=== PATIENT | male | born 1940 | race Caucasian/White ===

== ENCOUNTER 2019-08-09 07:03 | Day surgery (SDC) | payer MEDICARE, BC ==
[~2019-08-09] VITALS: Ht 180.3 cm; Wt 89.5 kg
[2019-08-09 07:45] LABS: APTT 33.8 SECONDS (22.8-39.4)
[2019-08-09 07:46] LABS: INR 1.18 (0.85-1.17)
[2019-08-09 08:45] LABS: HEMATOCRIT 28.8 % (42.0-54.0); HEMOGLOBIN 9.5 g/dL (13.5-17.5); MCH 22.6 pg (26.0-34.0); MCV 68.4 fL (80.0-100.0); MEAN PLATELET VOLUME 10.7 fL (7.4-10.4); PLATELET COUNT 96 10x3/uL (130-400); RBC 4.21 10x6/uL (4.20-6.10); RDW 16.3 % (11.5-14.5); WBC 5.4 10x3/uL (4.8-10.8)
[2019-08-09 09:20] VITALS: BP 117/52; Ht 180.3 cm; Wt 89.5 kg
[2019-08-09] MEDS ORDERED: FOLIC ACID0.8 MG PO (09:25)
[2019-08-09] MEDS ORDERED: TOPROL XL25 MG PO (09:26)
[2019-08-09] MEDS ORDERED: PLAVIX75 MG PO (09:27)
[2019-08-09] MEDS ORDERED: LASIX40 MG PO ×2 (09:27)
[2019-08-09] MEDS ORDERED: ALDACTONE100 MG PO (09:28)
[2019-08-09] MEDS ORDERED: ASPIRIN EC81 M1 PO (09:28)
[2019-08-09] MEDS ORDERED: PRAVACHOL40 MG PO (09:28)
[2019-08-09] MEDS ORDERED: CONSTULOSE (09:31)
[2019-08-09] MEDS ORDERED: LEVOXYL75 MCG PO (09:34)
[2019-08-09] MEDS ORDERED: LEVOXYL50 MCG PO (09:35)
[2019-08-09 10:23] LABS: PLATELET ESTIMATE DECREASED
--- NOTE | 2019-08-09 12:39 | NUR ---
1105 IV DC'D. CATHETER TIP INTACT. NO BLEEDING OR SWELLING AT SITE AFTER HOLDING PRESSURE. BANDAID APPLIED.
--- NOTE | 2019-08-10 16:37 | OP ---
PATIENT NAME: MARLENI HAYES MEDICAL RECORD: [id number] :40 LOCATION:D.OPS ADMISSION DATE: SURGEON: JONATHON MAR DO DATE OF OPERATION: 08/09/2019 PROCEDURE: Colonoscopy with polypectomy. INDICATIONS FOR PROCEDURE: History of colon polyps, diverticulosis, anemia, and thalassemia. SCOPE: Olympus video pediatric colonoscope. MEDICATIONS: Propofol 400 mg IV per anesthesia. WITHDRAWAL TIME: 12 minutes. ESTIMATED BLOOD LOSS: Minimal. COMPLICATIONS: None. FINDINGS: Informed consent was given. The patient was made comfortable with the above medication. After reaching an adequate level of sedation by slow IV push, the patient was placed in the left side. A digital rectal examination was performed and was normal. The endoscope was then advanced under direct visualization through the rectum to the cecum, confirmed by the presence of the appendiceal orifice and ileocecal valve. The endoscope was slowly withdrawn. Mucosa was carefully examined. Prep quality was good. There were multiple small mouth diverticula located in the descending and sigmoid colon consistent with mild diverticulosis. There was a single benign-appearing sessile polyp located in the rectum, which measured approximately 3 mm in diameter. It was removed using hot forceps. Retroflexion was performed in the rectum with a normal appearing rectal wall visualized. There were no other polyps visualized on today's examination. The endoscope was withdrawn from the patient. The patient tolerated the procedure well and there were no complications. IMPRESSION: 1. Single benign appearing polyp located in the rectum, status post hot forceps polypectomy. 2. Mild diverticulosis. PLAN AND RECOMMENDATIONS: 1. Discharge home when recovery parameters are met. 2. Follow up biopsy specimen results. 3. High fiber diet. 4. Continue current medications. 5. Recall colonoscopy. We will be dependent on results of polyps removed today. The polyp appeared to be consistent with a hyperplastic polyp. If that is the case, then considering the patient's age and health history overall, no further colonoscopies will likely be recommended. If this is an adenomatous polyp, we can consider a repeat in 5 years. TRANSINT:[id number] Voice Confirmation ID: [id number] DOCUMENT ID: [id number] OPERATIVE REPORT [id number] MARLENI HAYES JONATHON MAR DO at 6551 CC: [id number] DICTATION DATE: 08/09/19 1024 [employer] [employer] OPERATOR: 08/09/19 1722 [facility] [place] 08/09/19 [place] [id number] [place] [id number]
== END 2019-08-09 11:34 | disposition home or self-care (01) ==
LOC: D.OPS 07:03
PROVIDERS: Anesthesiology; ATTEND Internal Medicine Gastroenterology
DX: Z86.010 Personal history of colon polyps (principal); K57.90 Diverticulosis of intestine, part unspecified, without perforation or abscess without bleeding; D56.9 Thalassemia, unspecified; E07.9 Disorder of thyroid, unspecified; K74.60 Unspecified cirrhosis of liver; R18.8 Other ascites; D64.9 Anemia, unspecified

== ENCOUNTER 2019-10-11 11:19 | Day surgery (SDC) | payer MEDICARE ==
[~2019-10-11] VITALS: Ht 180.3 cm; Wt 93.2 kg
[~2019-10-11 11:19] MED LIST: ALDACTONE100 MG PO; ASPIRIN EC81 M1 PO; CONSTULOSE; FOLIC ACID0.8 MG PO; LASIX40 MG PO; LEVOXYL50 MCG PO; LEVOXYL75 MCG PO; PLAVIX75 MG PO; PRAVACHOL40 MG PO; TOPROL XL25 MG PO
[2019-10-11 11:50] LABS: APTT 32.1 SECONDS (22.8-39.4); INR 1.18 (0.85-1.17); PROTIME 14.9 SECONDS (11.6-15.0)
[2019-10-11 11:55] LABS: ALBUMIN 2.7 g/dL (3.4-5.0); ANION GAP 10.9 mmol/L (8-16); BILIRUBIN - TOTAL 1.39 mg/dL (0.2-1.3); CALCIUM 8.3 mg/dL (8.5-10.1); POTASSIUM - SERUM 4.9 mmol/L (3.5-5.1); PROTEIN - SERUM 6.5 g/dL (6.4-8.2)
[2019-10-11 12:11] VITALS: BP 128/57; Ht 180.3 cm; Wt 93.2 kg
[2019-10-11] MEDS ORDERED: FOLBIC RF TABL1 EACH PO (12:18)
--- NOTE | 2019-10-11 13:23 | NUR ---
DC INSTRUCTIONS GIVEN TO PT. STATES UNDERSTANDING. DC'D IV CATH FULLY INTACT.
--- NOTE | 2019-10-11 13:28 | NUR ---
PT LEFT UNIT VIA WC AT 1330
[2019-10-11 13:42] LABS: HEMATOCRIT 28.4 % (42.0-54.0); MCH 22.2 pg (26.0-34.0); MCHC 31.7 g/dL (31.0-37.0); MCV 70.1 fL (80.0-100.0); PLATELET COUNT 87 10x3/uL (130-400); RBC 4.05 10x6/uL (4.20-6.10); RDW 16.1 % (11.5-14.5); WBC 5.3 10x3/uL (4.8-10.8)
[2019-10-11 14:29] LABS: PLATELET ESTIMATE DECREASED
--- NOTE | 2019-10-12 09:55 | OP ---
PATIENT NAME: MARLENI HAYES MEDICAL RECORD: [id number] :40 LOCATION:[facility] ADMISSION DATE: SURGEON: JONATHON MAR DO DATE OF OPERATION: 10/11/2019 PROCEDURE: EGD with biopsies. INDICATIONS FOR PROCEDURE: Ascites, cirrhosis, anemia, elevated liver enzymes, thalassemia, and weight loss. SCOPE: Olympus video gastroscope. MEDICATIONS: Propofol 150 mg IV per anesthesia. ESTIMATED BLOOD LOSS: Minimal. COMPLICATIONS: None. FINDINGS: Informed consent was given. The patient was made comfortable with the above medication. After reaching an adequate level of sedation by slow IV push, the patient was placed on his left side. The endoscope was advanced under direct visualization through the mouth to the second portion of the duodenum with ease. The upper, middle, and lower thirds of the esophagus appeared normal. There were grade I esophageal varices without bleeding or bleeding stigmata. At the GE junction, there were minor changes consistent with LA class A reflux-induced esophagitis. The endoscope was advanced beyond the GE junction into the stomach and retroflexed to view the cardia and fundus. There was a small sliding hiatal hernia. There were no associated ulcerations or other abnormalities with this hernia. There were no gastric varices visualized. The mucosa of the fundus and proximal body of the stomach appeared normal. In the antrum and prepyloric regions, there were changes of granularity and erythema consistent with gastritis. There were a few superficial ulcerations without bleeding present in the same location. Cold forcep biopsies were taken from the antrum and incisura to submit for histopathology and to rule out the presence of H. pylori. The endoscope was advanced beyond the pylorus into the duodenum, which appeared normal to the second portion. The endoscope was withdrawn from the patient. The patient tolerated the procedure well and there were no complications. IMPRESSION: 1. Grade I esophageal varices without bleeding or bleeding stigmata. 2. LA class A reflux-induced esophagitis. 3. Small sliding hiatal hernia. 4. Gastritis and few superficial gastric ulcers without bleeding. PLAN AND RECOMMENDATIONS: 1. Discharge home when recovery parameters are met. 2. Follow up biopsy specimen results. 3. GERD diet and reflux precautions. 4. Continue current medications. 5. Omeprazole 40 mg daily times 60 days. 6. Recall EGD within 2 years for variceal surveillance. TRANSINT:[id number] Voice Confirmation ID: [id number] DOCUMENT ID: [id number] OPERATIVE REPORT [id number] MARLENI HAYES,JONATHON Salazar DO at 0955 CC: [id number] DICTATION DATE: 10/11/19 1257 [employer] OPERATOR: 10/11/19 1849 [facility] 10/11/19 [place] [id number] [place] [id number]
== END 2019-10-11 13:30 | disposition home or self-care (01) ==
LOC: D.OPS 11:19
PROVIDERS: Anesthesiology; ATTEND Internal Medicine Gastroenterology
DX: K74.60 Unspecified cirrhosis of liver (principal); R18.8 Other ascites; D64.9 Anemia, unspecified; R74.8 Abnormal levels of other serum enzymes; D56.9 Thalassemia, unspecified; R63.4 Abnormal weight loss